=== PATIENT | female | born 1975 | race Caucasian/White ===

== ENCOUNTER 2016-07-16 09:28 | Emergency (ER) | payer OTHER ==
[~2016-07-16] VITALS: Ht 167.6 cm; Wt 84.1 kg
[~2016-07-16 09:28] MED LIST: FERR325T35 PO; PREN1TAB56 PO; PROP10TA PO
[2016-07-16] MEDS ORDERED: LIOT5TAB3 PO (10:22)
[2016-07-16] MEDS ORDERED: LEVO112T4 PO (10:22)
[2016-07-16] MEDS ORDERED: BIRTH CONTROL PO (10:22)
[2016-07-16] MEDS ORDERED: LORazepam 2 MG/ML, 1ML ONE (10:49)
[2016-07-16] MEDS ORDERED: LORazepam 2 MG/ML, 1ML IVPush ONE (11:00)
[2016-07-16] MEDS ORDERED: SODIUM CHLORIDE FLUSH 10ML SYR IVF ONE (11:00)
[2016-07-16] MEDS ORDERED: SODIUM CHLORIDE 0.9% 1,000ML IVBOLUS ONE (11:00)
[2016-07-16 11:08] LABS: BLOOD UREA NITROGEN 15 mg/dL (7-18)
[2016-07-16 11:14] LABS: IS PT STATUS REG ER OR PRE ER? YES
[2016-07-16 12:11] VITALS: BP 155/110
== END 2016-07-16 12:13 | disposition home or self-care (01) ==
LOC: ED 12:07
DX: I10 Essential (primary) hypertension (principal); F41.1 Generalized anxiety disorder; E03.9 Hypothyroidism, unspecified
CPT/HCPCS: 36415; 80048; 82040; 84436; 84439; 84443; 84481; 84484; 85025; 93005; 96361; 96374; 99285; J2060; J7030